=== PATIENT | female | born 1945 | race Caucasian/White ===

== ENCOUNTER 2018-03-20 08:59 | Outpatient (CLI) | payer MEDICARE, BC | END 2018-03-20 09:00 | disposition home or self-care (01) | LOC: BICMAMMO 08:59 | PROVIDERS: ATTEND Family Medicine | DX: M85.89 Other specified disorders of bone density and structure, multiple sites (principal) | CPT/HCPCS: 77080 ==

== ENCOUNTER 2018-10-25 08:42 | Outpatient (CLI) | payer MEDICARE, BC | END 2018-10-25 08:43 | disposition home or self-care (01) | LOC: BICMAMMO 08:42 | PROVIDERS: ATTEND Family Medicine | DX: Z12.31 Encounter for screening mammogram for malignant neoplasm of breast (principal) | CPT/HCPCS: 77063; 77067 ==

== ENCOUNTER 2020-11-26 09:55 | Outpatient (CLI) | payer MEDICARE, BC ==
--- NOTE | 2020-11-26 10:35 | BD ---
EXAM: Bone densitometry using DEXA HISTORY: 75 yo female. Screening for postmenopausal osteoporosis FINDINGS: L1--bone mineral density 0.690 g/sq cm; T score -2.7 ; Z score -0.7 L2--bone mineral density 0.852 g/sq cm; T score -1.6 ; Z score 0.7 L3--bone mineral density 0.876 g/sq cm; T score -1.9 ; Z score 0.5 L4--bone mineral density 0.960 g/sq cm; T score -0.9 ; Z score 1.6 Total L1-L4--bone mineral density 0.851 g/sq cm; T score -1.8 ; Z score 0.5 Left femoral neck--bone mineral density0.639; T score -1.9 ; Z score 0.1 Total proximal left femur--bone mineral density 0.949; T score 0.1 ; Z score 1.8 The 10 year fracture risk for a major osteoporotic fracture is 13% and for a hip fracture is 4.3%. IMPRESSION: Osteopenia
--- NOTE | 2020-11-26 13:15 | MMO ---
Bilateral MAMMO Bilat Screen [facility]. CLINICAL HISTORY: Patient is 75 years old and is seen for screening. The patient has no family history of breast cancer. The patient has no personal history of cancer. VIEWS: The views performed were: bilateral craniocaudal with tomosynthesis and bilateral mediolateral oblique with tomosynthesis. FILMS COMPARED: The present examination has been compared to prior imaging studies performed at [facility] on 03/11/2016, 03/29/2017 and 10/25/2018, and at [facility] on 12/20/2013. This study has been interpreted with the assistance of computer-aided detection. MAMMOGRAM FINDINGS: There are scattered fibroglandular densities. There are no suspicious masses, suspicious calcifications, or new areas of architectural distortion. IMPRESSION: THERE IS NO MAMMOGRAPHIC EVIDENCE OF MALIGNANCY. A ROUTINE FOLLOW-UP MAMMOGRAM IN 1 YEAR IS RECOMMENDED. THE RESULTS OF THIS EXAM WERE SENT TO THE PATIENT. ACR BI-RADS Category 1 - Negative MAMMOGRAPHY NOTE: 1. A negative mammogram report should not delay a biopsy if a dominant of clinically suspicious mass is present. 2. Approximately 10% to 15% of breast cancers are not detected by mammography. 3. Adenosis and dense breasts may obscure an underlying neoplasm. Reported by: JUSTIN UMAÑA MD Electonically Signed: [id number]
== END 2020-11-26 09:56 | disposition home or self-care (01) ==
LOC: BICMAMMO 09:55
PROVIDERS: ATTEND Family Medicine
DX: Z12.31 Encounter for screening mammogram for malignant neoplasm of breast (principal); M85.88 Other specified disorders of bone density and structure, other site; N95.9 Unspecified menopausal and perimenopausal disorder
CPT/HCPCS: 77063; 77067; 77080